=== PATIENT | male | born 1955 | race Caucasian/White ===

== ENCOUNTER 2022-02-23 12:31 | Day surgery (SDC) | payer MEDICARE, OTHER ==
[~2022-02-23] VITALS: Ht 177.8 cm; Wt 119.5 kg
[2022-02-23 13:50] VITALS: BP 152/79; PULSE 72; TEMP 97.4
[2022-02-23] MEDS ORDERED: PROGRAF 1MG1 MG PO (14:10)
[2022-02-23] MEDS ORDERED: PROGRAF 0.5MG0.5 MG PO (14:11)
[2022-02-23] MEDS ORDERED: CELLCEPT 5500 MG/TAB PO (14:13)
[2022-02-23] MEDS ORDERED: NORVASC 10MG10 MG PO (14:13)
[2022-02-23] MEDS ORDERED: HYDRALAZINE HC100 MG PO (14:14)
[2022-02-23] MEDS ORDERED: LASIX 40MG TABL40 MG PO (14:15)
[2022-02-23] MEDS ORDERED: ASPIRIN E.C. 8181 MG PO (14:16)
[2022-02-23] MEDS ORDERED: CALCIUM 600MG+D1 TAB PO (14:17)
[2022-02-23] MEDS ORDERED: MULTI VITAMINS1 TAB PO (14:17)
[2022-02-23] MEDS ORDERED: CRESTOR5 MG PO (14:18)
[2022-02-23] MEDS ORDERED: CELEXA 20MG20 MG/TAB PO (14:18)
[2022-02-23] MEDS ORDERED: NOVOLOG 100U100 U/M1 SQ ×3 (14:19→14:21)
[2022-02-23] MEDS ORDERED: MAG-OX 400400 MG/TAB PO (14:19)
[2022-02-23] MEDS ORDERED: LANTUS100 U/ML SQ (14:22)
[2022-02-23 15:44] VITALS: BP 122/59; PULSE 66
--- NOTE | 2022-02-23 15:44 | NUR ---
PATIENT RETURNS TO ROOM 7 PER CART FROM SURGERY ACCOMPANIED BY TIERRA RIDDLE CRNA AND AMERICA RN. PATIENT IS AWAKE AND ALERT. RIGHT PORT A CATHETER NOTED RIGHT CHEST AND AREA SOFT WITH EXOFIN SKIN GLUE COVERING THE INCISION. SLIGHT BRUISING NOTED TO SITE. IV FLUIDS INFUSING. PATIENT DENIES PAIN OR NAUSEA.
[2022-02-23 15:59] VITALS: BP 146/67; PULSE 70
--- NOTE | 2022-02-23 15:59 | NUR ---
RESTING AND TALKING WITH SPOUSE. SIPPING ON DIET COKE.
[2022-02-23 16:14] VITALS: BP 142/74; PULSE 69
--- NOTE | 2022-02-23 16:14 | NUR ---
AWAKE AND ALERT. READY TO GO HOME.
--- NOTE | 2022-02-23 16:24 | NUR ---
IV DISCONTINUED AND SITE IS FREE OF REDNESS. GIVEN DISMISSAL INSTRUCTIONS. PATIENT DRESSES SELF.
--- NOTE | 2022-02-23 16:33 | NUR ---
PATIENT DISMISSED TO HOME DRIVEN BY SPOUSE AND TAKEN TO THE FRONT DOOR PER WHEELCHAIR AND ASSISED TON VEHICLE WITH DISMISSAL INSTRUCTIONS IN HAND.
== END 2022-02-23 16:33 | disposition home or self-care (01) ==
LOC: SDCO 12:31
DX: C18.9 Malignant neoplasm of colon, unspecified (principal); Z79.82 Long term (current) use of aspirin; Z94.1 Heart transplant status
CPT/HCPCS: C1788; J0690; J1644; J2704; J3010; J7120

== ENCOUNTER 2023-12-06 12:23 | Inpatient (IN) | payer MEDICARE, OTHER ==
[~2023-12-06] VITALS: Ht 177.8 cm; Wt 119.0 kg
[~2023-12-06 12:23] MED LIST: ASPIRIN E.C. 8181 MG PO; CALCIUM 600MG+D1 TAB PO; CELEXA 20MG20 MG/TAB PO; CELLCEPT 5500 MG/TAB PO; CRESTOR5 MG PO; HYDRALAZINE HC100 MG PO; LANTUS100 U/ML SQ; LASIX 40MG TABL40 MG PO; MAG-OX 400400 MG/TAB PO; MULTI VITAMINS1 TAB PO; NORVASC 10MG10 MG PO; NOVOLOG 100U100 U/M1 SQ; PROGRAF 0.5MG0.5 MG PO; PROGRAF 1MG1 MG PO
[2023-12-12 10:23] LABS: BASO % 0.6 % (0.0-2.0); EOS # 0.1 K/mm3 (0.0-0.7); EOS % 1.6 % (0.0-4.0); GRAN # 3.4 K/mm3 (1.4-6.5); GRAN % 67.7 % (42.2-75.2); HEMATOCRIT 41.1 % (42.0-52.0); LYMPH % 20.6 % (20.0-51.0); MEAN CELL VOLUME 99 fl (80.0-100.0); MEAN CORPUSCULAR HEMOGLOBIN 34 pg (27-31); MEAN CORPUSCULAR HGB CONC 34 g/dl (33.0-37.0); MEAN PLATELET VOLUME 11.6 fl (7.4-10.4); MONO # 0.5 K/mm3 (0.1-0.6); MONO % 9.1 % (1.7-9.3); PLATELET COUNT 122 K/mm3 (130-400); RED BLOOD COUNT 4.14 M/mm3 (4.20-5.60)
[2023-12-12 10:45] LABS: INR 1.4 (0.8-3.0); PROTHROMBIN TIME 14.7 SECONDS (9.7-12.8)
[2023-12-12 10:55] LABS: ALBUMIN 3.9 g/dL (3.4-4.8); BILIRUBIN,TOTAL 0.8 mg/dL (0.2-1.2); CALCIUM 9.7 mg/dL (8.4-10.2); CREATININE, serum 0.88 mg/dL (0.72-1.25); MAGNESIUM 1.7 mg/dL (1.6-2.6); POTASSIUM 4.1 mEq/L (3.5-4.5); TOTAL PROTEIN 6.9 g/dl (6.2-8.1)
[2023-12-13] MEDS ORDERED: Furosemide 40 MG TAB PO SCH (09:00)
[2023-12-13] MEDS ORDERED: Citalopram 20 MG TAB PO SCH (09:00)
[2023-12-13] MEDS ORDERED: Losartan 25 MG TAB PO SCH (09:00)
[2023-12-13] MEDS ORDERED: NS Flush 10 ML SYRINGE PRN ICA (14:00)
[2023-12-13] MEDS ORDERED: Acetaminophen 325 MG TAB PO PRN (14:15)
[2023-12-13] MEDS ORDERED: Ondansetron 4 MG/2 ML VIAL IV PRN (14:15)
[2023-12-13] MEDS ORDERED: Mag/Al Hydrox/Simeth Susp 30 ML CUP PO PRN (14:15)
[2023-12-13] MEDS ORDERED: Melatonin 3 MG TAB PO PRN (14:30)
[2023-12-13 16:18] VITALS: BP 106/70; PULSE 82; TEMP 97.5
--- NOTE | 2023-12-13 16:38 | NUR ---
Inspecting Machine Adjuster met with patient to complete initial intake. Patient lives in [place], [place] with his , Jolene. Patient sees Dr. Jamir Rider for primary care and gets his medications from [facility]. Patient uses a CPAP and also reported he has canes, walkers, and crutches in storage. Patient reported independence with ADLS including driving. Patient isn't sure if he has DPOA-HC or not. Patient was not interested in completing one at this time. Patient plans to return home at time of discharge. Discharge Plan; Home
[2023-12-13] MEDS ORDERED: Insulin Lispro (HumaLOG) SQ SCH (17:00)
[2023-12-13 17:04] VITALS: BP_SYST 106
[2023-12-13 19:34] VITALS: BP 110/76; PULSE 78; TEMP 97.8
[2023-12-13 21:00] VITALS: BP_SYST 100
[2023-12-13] MEDS ORDERED: Mycophenolate 250 MG CAP PO SCH (21:00)
[2023-12-13] MEDS ORDERED: Insulin Glargine-ygfn (Lantus) SQ SCH (21:00)
[2023-12-13] MEDS ORDERED: NS Flush 10 ML SYRINGE BID ICA SCH (21:00)
[2023-12-13] MEDS ORDERED: hydrALAZINE 25 MG TAB PO SCH (21:00)
[2023-12-13] MEDS ORDERED: Apixaban 5 MG TABLET PO SCH (21:00)
[2023-12-13] MEDS ORDERED: Tacrolimus 0.5 MG CAP PO SCH (21:00)
[2023-12-13] MEDS ORDERED: Calcium Citrate/Vit D3 200 mg-250 Units TAB PO SCH (21:00)
--- NOTE | 2023-12-13 21:00 | NUR ---
Initial shift assessment done- NPO after MN for cardioversion/loop recorder, Tele on aflutter/fib 62/min,, HS snack given, Blood sugar 142-Did get his Lantus as ordered, Sotalol given as ordered tonight,QTC 473- states no pain/SOB, doing well, up in room walking on his own.
[2023-12-13 23:09] VITALS: BP 100/60; PULSE 65; TEMP 97.5
[2023-12-14 01:00] VITALS: BP_SYST 100
[2023-12-14 02:51] VITALS: BP 97/63; PULSE 55; TEMP 97.4
[2023-12-14 06:29] LABS: ALBUMIN 3.5 g/dL (3.4-4.8); BILIRUBIN,TOTAL 0.6 mg/dL (0.2-1.2); CALCIUM 8.9 mg/dL (8.4-10.2); CREATININE, serum 1.12 mg/dL (0.72-1.25); TOTAL PROTEIN 6.4 g/dl (6.2-8.1)
--- NOTE | 2023-12-14 07:00 | NUR ---
PATIENT AWARE OF NPO STATUS.. PATIENT AWAKE AND ALERT, SITTING UP IN THE RECLINER. PATIENT SAYDA ANY NEEDS OR COMPLAINTS AT THIS TIME. CALL LIGHT WITHINREACH.
[2023-12-14 07:34] VITALS: BP 115/79; PULSE 62; TEMP 97.8
[2023-12-14] MEDS ORDERED: amLODIPine 10 MG TAB PO SCH (09:00)
[2023-12-14] MEDS ORDERED: Cephalexin 500 MG CAP PO SCH (09:00)
[2023-12-14] MEDS ORDERED: Tacrolimus 1 MG CAP PO SCH (09:00)
[2023-12-14] MEDS ORDERED: Magnesium Oxide 400 MG TAB PO SCH (09:00)
[2023-12-14] MEDS ORDERED: Lidocaine PF 2% (20 MG/ML) 5 ML VIAL IV ONE (11:18)
[2023-12-14] MEDS ORDERED: Propofol 10 MG/ML 10 ML VIAL IV ONE (11:18)
[2023-12-14] MEDS ORDERED: CEPHALEXIN500 M1 PO (11:33)
[2023-12-14] MEDS ORDERED: BETAPACE 80MG80 MG PO (11:34)
[2023-12-14] MEDS ORDERED: ELIQUIS 5MG PO (11:34)
[2023-12-14] MEDS ORDERED: COZAAR 25MG25 MG/TAB PO (11:35)
[2023-12-14] MEDS ORDERED: Multivitamin TAB PO SCH (12:00)
--- NOTE | 2023-12-14 12:02 | NUR ---
Bedside report completed with Haley BISHOP, call light within reach, insertion site reviewed, telemetry box in place, first set of vitals reviewed.
--- NOTE | 2023-12-14 13:47 | NUR ---
PATIENT GIVEN DISCHARGE INSTRUCTIONS AND EDCATION. INOCENCIA DENIES ANY FURHTER QUESTIONS AT THIS TIME AN VERBIZALIZES UNDERSTANDING OF ALL NEW MEDICTIONS AND FOLLOW UP APT. PATIENTS IV AN TELE REMOVED. PATIENT TAKEN TO ER ENTRANCE WHERE HE LEFT IN STABLE CONDITION WITH HIS AND FAMILY.
== END 2023-12-14 13:48 | disposition home or self-care (01) | DRG 262 ==
LOC: MEDICAL 12-12 09:30
PROVIDERS: ADMIT Internal Medicine Cardiovascular Disease
PROC: 0JH632Z Insertion of Monitoring Device into Chest Subcutaneous Tissue and Fascia, Percutaneous Approach (ICD-10-PCS; principal; 2023-12-12)
PROC: 5A2204Z Restoration of Cardiac Rhythm, Single (ICD-10-PCS; 2023-12-12)
DX: I48.92 Unspecified atrial flutter (principal); Z88.8 Allergy status to other drugs, medicaments and biological substances
CPT/HCPCS: C1764; J1815; J2704; J7507; J7517